=== PATIENT | female | born 1955 | race Caucasian/White ===

== ENCOUNTER 2017-12-22 10:59 | Emergency (ER) | payer BC ==
[~2017-12-22] VITALS: Ht 152.4 cm; Wt 54.4 kg
[2017-12-22] MEDS ORDERED: ALBUTEROL/IPRATROPIUM 3 ML NEB NEB ONE ×2 (11:15→13:00)
[2017-12-22] MEDS ORDERED: ACETAMINOPHEN 325 MG TAB PO ONE (11:15)
[2017-12-22] MEDS ORDERED: NIFEDIPINE 10 MG CAP SL ONE (11:15)
[2017-12-22] MEDS ORDERED: ASPIRIN 81 MG CHEW TAB PO ONE (11:15)
[2017-12-22 11:28] LABS: STREPTOCOCCUS GRP A ANTIGEN NEGATIVE (NEGATIVE)
[2017-12-22] MEDS ORDERED: PREDNISONE 20 MG TAB PO ONE (11:30)
[2017-12-22 11:45] LABS: INFLUENZAE A&B ANTIGEN (RAPID) POSITIVE FLU B (NEGATIVE)
[2017-12-22 12:00] LABS: BASOPHILS % 0.4 % (0.0-1.0); EOSINOPHILS % 0.3 % (0.0-6.0); HEMATOCRIT 47.3 % (34.2-44.1); HEMOGLOBIN 16.1 g/dL (12.0-16.0); LYMPHOCYTES # (AUTO) 1.4 (1.0-3.2); LYMPHOCYTES % 18.3 % (18.0-39.1); MEAN CORPUSCULAR HEMOGLOBIN 29.6 pg (28-32); MEAN CORPUSCULAR VOLUME 86.9 fL (81-99); MONOCYTES % 12.9 % (4.4-11.3); NEUTROPHILS # (AUTO) 5.2 (2.1-6.9); NEUTROPHILS % 67.4 % (38.7-80.0); PLATELET COUNT 190 x10e3/uL (140-360); RED BLOOD COUNT 5.44 x10e6/uL (3.6-5.1); RED CELL DISTRIBUTION WIDTH 13.3 % (11.7-14.4)
[2017-12-22 12:01] LABS: BILIRUBIN,URINE NEGATIVE (NEGATIVE); COLOR,URINE YELLOW (YELLOW); KETONES,URINE NEGATIVE (NEGATIVE); LEUKOCYTE ESTERASE ,URINE 2+ (NEGATIVE); NITRITE,URINE NEGATIVE (NEGATIVE); URINE UROBILINOGEN 0.2 mg/dL (0.2 - 1)
[2017-12-22 12:02] LABS: CLARITY,URINE SL CLOUDY (CLEAR); PROTEIN,URINE DIPSTICK TRACE (NEGATIVE)
--- NOTE | 2017-12-22 12:04 | Diagnostic Imaging Report ---
EXAMINATION: Chest, CHEST 2 VIEWS INDICATION: Chest pain COMPARISON: None FINDINGS: LINES: None. Heart: Normal cardiac silhouette. Vascular: The pulmonary vasculature is within normal limits. Mediastinum: No mediastinal, hilar, or axillary mass or lymphadenopathy. Lungs: No parenchymal mass. No focal consolidation. Pleura: No pleural effusion. No pneumothorax. Bones: No acute osseous abnormality. Degenerative changes of the thoracic spine. Soft tissues: Normal. Impression: No acute radiographic abnormality. Signed by: Dr. Iraj Hernandez M.D. on 12/22/2017 12:01 PM
[2017-12-22 12:16] LABS: BACTERIA,URINE FEW /HPF; EPITHELIAL CELLS,URINE FEW /LPF
[2017-12-22 12:19] LABS: ANION GAP 13.3 mmol/L (8-16); BLOOD UREA NITROGEN 12 mg/dL (7-26); BUN/CREATININE RATIO 14 (6-25); CALCIUM 8.9 mg/dL (8.4-10.2); CARBON DIOXIDE 27 mmol/L (22-29); CHLORIDE 98 mmol/L (98-107); CREATININE, SERUM 0.86 mg/dL (0.57-1.11); EST GLOMERULAR FILTRATION RATE > 60 ML/MIN (60-); GLUCOSE 92 mg/dL (74-118); POTASSIUM 3.3 mmol/L (3.5-5.1); SODIUM 135 mmol/L (136-145)
[2017-12-22 12:47] LABS: CREATINE KINASE MB 1.6 ng/mL (0.00-5.00)
[2017-12-22] MEDS ORDERED: TAMIFLU75 MG PO (12:50)
[2017-12-22] MEDS ORDERED: ALBUTEROL/IPRATROPIUM 3 ML NEB ONE (12:54)
[2017-12-22 13:20] VITALS: BP 160/89
== END 2017-12-22 13:21 | disposition home or self-care (01) ==
LOC: ER 10:59
DX: R50.9 Fever, unspecified (principal); R05 Cough; J11.1 Influenza due to unidentified influenza virus with other respiratory manifestations; I10 Essential (primary) hypertension; F17.210 Nicotine dependence, cigarettes, uncomplicated
CPT/HCPCS: 36415; 71046; 80048; 81001; 82550; 82553; 83518; 84484; 85025; 87070; 87086; 87400